=== PATIENT | female | born 1980 | race African-American/Black ===

== ENCOUNTER 2018-09-30 08:04 | Observation (INO) | payer MEDICARE, OTHER ==
[~2018-09-30] VITALS: Ht 152.4 cm; Wt 124.7 kg
--- OUTSIDE RECORDS SUMMARY | 2018-09-30 08:06 | XMS REPORT ---
Author Author Rowdy Olmos Organization eClinicalWorks Address Unknown Phone Unavailable Care Team Providers Care Magazine Designer Name Role Phone Rowdy Olmos CP Unavailable Encounters Encounter Location Date Unknown [facility] Mar 26, 2016 Unknown [facility] Apr 06, 2016 Problems Problem Type Condition ICD-9 Code Onset Dates Condition Status Problem BMI 50.0-59.9, adult Z68.43 Active Problem Morbid obesity, unspecified obesity type E66.01 Active Problem Hypothyroidism, unspecified type E03.9 Active Problem History of thyrotoxicosis Z86.39 Active Problem Hx of thyroid irradiation Z92.3 Active Medications Medication Code System Code Instructions Start Date End Date Status Dosage [facility] [address]-78 100 MCG Orally Once a day Apr 07, 2016 Active 1 tablet Social History Social History Element Qualifiers Date Reported Do you take Aspirin, or a blood thinner . No I do not take aspirin / or a blood thinner Mar 26, 2016 Tobacco Use: . Are you a: never smoker Mar 26, 2016 Use of recreational / street drugs? . Answer: No Mar 26, 2016 Marital Status: . Single Mar 26, 2016 Caffeine intake? . Status: Yes, What type: Tea, Soft Drinks Mar 26, 2016 Do you exercise? . Answer: No Mar 26, 2016 Do you drink alcohol? . Status: Yes, Type: Wine, How Often? Socially, Quantity: 1 Mar 26, 2016 Travel outside [place]: . 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
--- OUTSIDE RECORDS SUMMARY | 2018-09-30 08:06 | XMS REPORT ---
Author Author Rowdy Olmos Organization eClinicalWorks Address Unknown Phone Unavailable Care Team Providers Care Attorney General Name Role Phone Rowdy Olmos CP Unavailable Allergies No Known Allergies Problems Problem Type Condition Code Onset Dates Condition Status Problem OLIMPIA (obstructive sleep apnea) G47.33 Active Problem BMI 50.0-59.9, adult Z68.43 Active Problem Iron deficiency anemia due to chronic blood loss D50.0 Active Problem Hypothyroidism, unspecified type E03.9 Active Problem Hx of thyroid irradiation Z92.3 Active Problem Morbid obesity, unspecified obesity type E66.01 Active Problem History of thyrotoxicosis Z86.39 Active Medications Medication Code System Code Instructions Start Date End Date Status Dosage Ferrous Gluconate [facility] [address] 325 MG Orally daily June 07, 2017 Active as directed Caltrate 600+D [facility] 37925203071 600-800 MG-UNIT Orally Once a day June 07, 2017 July 07, 2017 Active 1 tablet with a meal Ergocalciferol [facility] 60001713541 59740 UNIT Orally once a week June 07, 2017 July 22, 2017 Active 1 capsule Folic Acid [facility] 14083629642 1 MG Orally Once a day June 07, 2017 July 07, 2017 Active 1 tablet Results No Known Results Summary Purpose eClinicalWorks Submission
--- OUTSIDE RECORDS SUMMARY | 2018-09-30 08:06 | XMS REPORT | Continuity of Care Document ---
Author Author [employer] Organization [employer] Address Unknown Phone Unavailable Care Team Providers Care Cupola Tender Helper Name Role Phone [employer] Unavailable Unavailable Problems Problem Status Onset Date Classification Date Reported Comments Source KNEE AND ELBOW PAIN Active 04/09/2012 [facility] Graves eye disease Resolved Problem 04/11/2012 [facility] Hypothyroidism Resolved Problem 04/11/2012 [facility] OLIMPIA Active Problem 07/08/2017 2.16.840.1.631231.4.391.11.31465 BMI 50.0-59.9, adult Active Problem 07/08/2017 2.16.840.1.560053.4.391.11.61306 Iron deficiency anemia due to chronic blood loss Active Problem 07/08/2017 2.16.840.1.480072.4.391.11.14142 Hypothyroidism, unspecified type Active Diagnosis 07/08/2017 2.16.840.1.864859.4.391.11.48476 Hx of thyroid irradiation Active Problem 07/08/2017 2.16.840.1.981171.4.391.11.88282 Morbid obesity, unspecified obesity type Active Problem 07/08/2017 2.16.840.1.612960.4.391.11.77774 History of thyrotoxicosis Active Problem 07/08/2017 2.16.840.1.104874.4.391.11.71540 Encounter for general adult medical examination with abnormal findings Active Diagnosis 06/22/2017 2.16.840.1.502055.4.391.11.03192 Folic acid deficiency Active Problem 07/08/2017 2.16.840.1.110741.4.391.11.45270 Vitamin D deficiency Active Problem 07/08/2017 2.16.840.1.967645.4.391.11.06204 Encounter for immunization Active Diagnosis 04/06/2016 2.16.840.1.590302.4.391.11.74878 Abnormal thyroid blood test Active Diagnosis 04/08/2016 2.16.840.1.253218.4.391.11.10046 Medications Medication Details Route Status Patient Instructions Ordering Provider Order Date Source Ferrous Gluconate as directed Orally Active 325 MG Orally daily Nickolas 06/07/2017 2.16.840.1.298801.4.391.11.28401 Caltrate 600+D 1 tablet with a meal Orally Active 600-800 MG- UNIT Orally Once a day Nickolas 06/07/2017 2.16.840.1.731738.4.391.11.24253 Ergocalciferol 1 capsule Orally Active 82086 UNIT Orally once a week Nickolas 06/07/2017 2.16.840.1.777171.4.391.11.37325 Folic Acid 1 tablet Orally Active 1 MG Orally Once a day Nickolas 06/07/2017 2.16.840.1.462512.4.391.11.31537 Hemocyte Plus as directed Orally Active 106-1 MG Orally Once a day Nickolas 05/26/2016 2.16.840.1.077251.4.391.11.24555 Levothyroxine Sodium 1 tablet Orally Active 150 MCG Orally Once a day Nickolas 05/26/2016 2.16.840.1.834128.4.391.11.59444 Adipex-P 1 tablet Orally Active 37.5 MG Orally Once a day Nickolas 05/26/2016 2.16.840.1.610828.4.391.11.33625 Hemocyte Plus as directed Orally Active 106-1 MG Orally Once a day Nickolas 05/26/2016 2.16.840.1.351716.4.391.11.52094 Levothyroxine Sodium 1 tablet Orally Active 150 MCG Orally Once a day Nickolas 04/07/2016 2.16.840.1.430822.4.391.11.93895 Levothyroxine Sodium 1 tablet Orally Active 100 MCG Orally Once a day Nickolas 04/07/2016 2.16.840.1.986729.4.391.11.82658 [place] 5/325 oral tablet 1-2 tab, PO, Q4-6H, PRN, 15 tab, Pain, Substitution Allowed, Maintenance PO Active [facility]ianist 04/10/2012 [facility] [place] 5/325 oral tablet 2 tab, Route: PO, Drug Form: TAB, Dosing Weight 95.455, kg, ONCE, Start date: 04/09/12 19:37:00, Stop date: 04/09/12 19:37:00 PO No Longer Active Sabianist 04/10/2012 [facility] Levothyroxine Sodium TAKE 1 TABLET BY MOUTH EVERY DAY NA Active 150 MCG Nickolas 2.16.840.1.172454.4.391.11.14107 Allergies, Adverse Reactions, Alerts Substance Category Reaction Severity Reaction type Status Date Reported Comments Source Amoxicillin Adverse Reaction hives Adverse Reaction Active 07/04/2017 2.16.840.1.074291.4.391.11.78093 amoxicillin drug allergy Allergy Active [facility] Immunizations Immunization Date Given Site Status Last Updated Comments Source FLU VACCINE NO PRESERV 3 & > 03/26/2016 completed 2.16.840.1.139596.4.391.11.36901 Results No Data Provided for This Section Pathology Reports No Data Provided for This Section Diagnostic Reports No Data Provided for This Section Consultation Notes No Data Provided for This Section Discharge Summaries No Data Provided for This Section History and Physicals No Data Provided for This Section Vital Signs Vital Sign Value Date Comments Source Weight 281.4 07/04/2017 2.16.840.1.003482.4.391.11.64702 Height 60.6 07/04/2017 2.16.840.1.064316.4.391.11.74704 Temperature Oral (F) 98.5 F 07/04/2017 2.16.840.1.336864.4.391.11.53555 Heart Rate 82 07/04/2017 2.16.840.1.060299.4.391.11.40916 Diastolic (mm Hg) 88 07/04/2017 2.16.840.1.985324.4.391.11.39270 Systolic (mm Hg) 133 07/04/2017 2.16.840.1.391647.4.391.11.51895 Weight 293.6 06/06/2017 2.16.840.1.706111.4.391.11.88627 Height 60.6 06/06/2017 2.16.840.1.224579.4.391.11.56525 Temperature Oral (F) 9892 F 06/06/2017 2.16.840.1.988748.4.391.11.06673 Heart Rate 88 06/06/2017 2.16.840.1.269909.4.391.11.76693 Diastolic (mm Hg) 94 06/06/2017 2.16.840.1.685973.4.391.11.20538 Systolic (mm Hg) 133 06/06/2017 2.16.840.1.534428.4.391.11.26150 Weight 291.1 05/26/2016 2.16.840.1.137161.4.391.11.59156 Height 60.6 05/26/2016 2.16.840.1.392230.4.391.11.64431 Temperature Oral (F) 98.0 F 05/26/2016 2.16.840.1.700743.4.391.11.78612 Heart Rate 83 05/26/2016 2.16.840.1.120409.4.391.11.02219 Diastolic (mm Hg) 95 05/26/2016 2.16.840.1.798958.4.391.11.06174 Systolic (mm Hg) 130 05/26/2016 2.16.840.1.864643.4.391.11.36244 Weight 291.7 03/26/2016 2.16.840.1.891161.4.391.11.04621 Height 60.6 03/26/2016 2.16.840.1.519394.4.391.11.86554 Temperature Oral (F) 98.1 F 03/26/2016 2.16.840.1.668191.4.391.11.58116 Heart Rate 85 03/26/2016 2.16.840.1.348813.4.391.11.86481 Diastolic (mm Hg) 96 03/26/2016 2.16.840.1.640071.4.391.11.17264 Systolic (mm Hg) 137 03/26/2016 2.16.840.1.841489.4.391.11.02893 Weight 95.455 04/10/2012 [facility] Height 149.86 cm 04/10/2012 [facility] Encounters Location Location Details Encounter Type Encounter Number Reason For Visit Attending Provider ADM Date DC Date Status Source [facility] Emergency [id number] NOE STONE 04/09/2012 04/09/2012 Discharged [facility] Unknown [id number] 03/26/2016 03/26/2016 2.16.840.1.826640.4.391.11.77237 [facility] Unknown [id number] 03/26/2016 03/26/2016 2.16.840.1.200663.4.391.11.76237 [facility] Unknown [id number] 03/26/2016 03/26/2016 2.16.840.1.287337.4.391.11.48742 [facility] Unknown [id number] 04/06/2016 04/06/2016 2.16.840.1.497026.4.391.11.32864 [facility] Unknown [id number] 04/06/2016 04/06/2016 2.16.840.1.812382.4.391.11.63577 [facility] Unknown [id number] 04/07/2016 04/07/2016 2.16.840.1.674867.4.391.11.66940 Procedures Procedure Code Date Perfomer Comments Source Tubal ligation [id number] [facility] Assessment and Plan No Data Provided for This Section Plan of Care No Data Provided for This Section Social History Social History Date Source Social History ElementQualifiersDate Reported Do you take Aspirin, or a [...] 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
--- OUTSIDE RECORDS SUMMARY | 2018-09-30 08:06 | XMS REPORT ---
Author Author Rowdy Olmos Organization eClinicalWorks Address Unknown Phone Unavailable Care Team Providers Care Headliner Installer Name Role Phone Rowdy Olmos CP Unavailable Allergies, Adverse Reactions, Alerts Substance Reaction Event Type Amoxicillin hives Drug Allergy Problems Problem Type Condition Code Onset Dates Condition Status Assessment Iron deficiency anemia due to chronic blood loss D50.0 Active Assessment Hypothyroidism, unspecified type E03.9 Active Assessment Morbid obesity, unspecified obesity type E66.01 Active Assessment OLIMPIA (obstructive sleep apnea) G47.33 Active Problem OLIMPIA (obstructive sleep apnea) G47.33 Active Problem Hypothyroidism, unspecified type E03.9 Active Problem Iron deficiency anemia due to chronic blood loss D50.0 Active Problem History of thyrotoxicosis Z86.39 Active Problem Hx of thyroid irradiation Z92.3 Active Problem BMI 50.0-59.9, adult Z68.43 Active Problem Morbid obesity, unspecified obesity type E66.01 Active Medications Medication Code System Code Instructions Start Date End Date Status Dosage Levothyroxine Sodium [facility] [address]-92 150 MCG Orally Once a day May 26, 2016 Active 1 tablet Levothyroxine Sodium [facility] [address]-20 100 MCG Orally Once a day Apr 07, 2016 Active 1 tablet Adipex-P [facility] [address]-91 37.5 MG Orally Once a day May 26, 2016 June 26, 2016 Active 1 tablet Hemocyte Plus [facility] [address]-98 106-1 MG Orally Once a day May 26, 2016 Active as directed Vital Signs Date/Time: May 26, 2016 BMI 55.73 Index Weight 291.1 lbs Height 60.6 in Temperature 98.0 F Cardiac Monitoring Heart Rate 83 /min Blood Pressure Diastolic 95 mm Hg Blood Pressure Systolic 130 mm Hg Results No Known Results Summary Purpose eClinicalWorks Submission
--- OUTSIDE RECORDS SUMMARY | 2018-09-30 08:06 | XMS REPORT | Clinical Summary ---
Author Author [facility] Organization [employer] [facility] [facility] Address Unknown Phone Unavailable Care Team Providers Care Yard Specialist Name Role Phone Rowdy Olmos MD PCP Allergies Comments Active Allergy Reactions Severity Noted Date Amoxicillin Anaphylaxis High 02/22/2017 Medications End Date Status Medication Sig Dispensed Refills Start Date Active levothyroxine (SYNTHROID, Take 150 mcg 0 LEVOXYL) 150 mcg tablet by mouth every morning. Active multivitamin,qs-ceat-Ym-F Take 1 tablet 0 A-min (UNI-THERA M) by mouth 27-0.4 mg tablet daily. Active calcium carbonate Take by 0 (CALTRATE 600 ORAL) mouth. Active ergocalciferol (VITAMIN Take 50,000 0 D2) 50,000 unit capsule Units by mouth once a week. 06/04/2018 predniSONE (DELTASONE) 20 Take 3 15 tablet 0 mg tablet tablets (60 9 mg total) by mouth daily for 5 days. 06/29/2018 albuterol (PROAIR Inhale 1-2 1 Inhaler 0 HFA,PROVENTIL puffs every 6 9 HFA,VENTOLIN HFA) 90 (six) hours mcg/actuation inhaler as needed for wheezing for up to 30 days. Active Problems Not on file Encounters Care Team Description Date Type Specialty Frederick Ortega MD Upper respiratory tract infection, unspecified type (Primary Dx); Bronchospasm 05/30/2018 Emergency Emergency Medicine after 09/29/2017 Social History Date Tobacco Use Types Packs/Day Years Used Never Smoker Smokeless Tobacco: Never Used Alcohol Use Drinks/Week oz/Week Comments Yes social Sex Assigned at Date Recorded Not on file Industry Job Start Date Occupation Not on file Not on file Not on file Travel End Travel History Travel Start No recent travel history available. Last Filed Vital Signs Time Taken Vital Sign Reading 05/30/2018 5:10 PM CDT Blood Pressure 114/72 05/30/2018 5:10 PM CDT Pulse 86 05/30/2018 5:10 PM CDT Temperature 36.9 C (98.4 F) 05/30/2018 5:10 PM CDT Respiratory Rate 20 05/30/2018 5:10 PM CDT Oxygen Saturation 99% - Inhaled Oxygen - Concentration 05/30/2018 5:19 PM CDT Weight 124 kg (274 lb) 05/30/2018 5:19 PM CDT Height 149.9 cm (4' 11") 05/30/2018 5:19 PM CDT Body Mass Index 55.34 Plan of Treatment Health Maintenance Due Date Last Done Comments INFLUENZA VACCINE 10/05/2018 Procedures Comments Procedure Name Priority Date/Time Associated Diagnosis INFLUENZA ANTIGEN Routine 05/30/2018 5:44 PM CDT STREP SCREEN CULTURE Routine 05/30/2018 5:39 PM CDT GROUP A STREP, RAPID Routine 05/30/2018 ANTIGEN 5:39 PM CDT after 09/29/2017 Results * Influenza antigen (05/30/2018 5:44 PM CDT) Influenza Negative for Influenza A/B DOHERTY antigen antigen. BAHAI Comment: DYER Specimen Information EMERGENCY CARE Specimen Source: Nares CENTER Specimen Site: Left Specimen Nares - Left Performing Organization Address [facility] [place] [address] [facility] MATEUS MCQUEEN [address] [place] [address] * Group A strep, rapid antigen (05/30/2018 5:39 PM CDT) Group A strep, Negative for Group A KENESAW rapid antigen Streptococcus antigen. BAHAI result Comment: DYER Specimen Information EMERGENCY CARE Specimen Source: Throat CENTER Specimen Site: Not otherwise specified Specimen Throat - Not otherwise specified Performing Organization Address [facility] [address] PATHOLOGY AND GENOMIC MEDICINE, [facility] MATEUS MCQUEEN [address] [place] [address] [facility] * Strep screen culture (05/30/2018 5:39 PM CDT) Strep screen No beta hemolytic Streptococci MATEUS culture isolate isolated BAHAI Comment: HOSPITAL Specimen Information Specimen Source: Throat Specimen Site: Not otherwise specified Specimen Throat - Not otherwise specified Performing Organization Address City/State/Zipcode Phone Number [facility] OF [address] [place] [address] PATHOLOGY AND GENOMIC MEDICINE MATEUS MCQUEEN [address] [place], [place] [phone] HOSPITAL after 09/29/2017 Insurance Type Payer Benefit Subscriber ID Effective Phone Address Plan / Dates Group Exchange MCCRARY EXCHANGE MCCRARY xxxxxxxxxx 2016-P [employer] resent E EXCHANGE TPL TPL TPL-MED-DA xxxxxxxxxx 2017 TA -Present VillegasPhuong mejia [employer] Self [address] [place] (Home) [place] [id number] Liability Advance Directives Patient has advance care planning documents on file. For more information, arsenio e contact: Mateus Mcqueen [address] [place] [address]
--- OUTSIDE RECORDS SUMMARY | 2018-09-30 08:06 | XMS REPORT ---
Author Author Rowdy Olmos Organization eClinicalWorks Address Unknown Phone Unavailable Care Team Providers Care Business Analyst Project Manager Name Role Phone Rowdy Olmos CP Unavailable Allergies, Adverse Reactions, Alerts Substance Reaction Event Type Amoxicillin hives Drug Allergy Problems Problem Type Condition Code Onset Dates Condition Status Assessment Hypothyroidism, unspecified type E03.9 Active Problem Hx of thyroid irradiation Z92.3 Active Problem BMI 50.0-59.9, adult Z68.43 Active Problem Folic acid deficiency E53.8 Active Problem OLIMPIA (obstructive sleep apnea) G47.33 Active Problem Vitamin D deficiency E55.9 Active Problem History of thyrotoxicosis Z86.39 Active Problem Hypothyroidism, unspecified type E03.9 Active Problem Iron deficiency anemia due to chronic blood loss D50.0 Active Problem Morbid obesity, unspecified obesity type E66.01 Active Assessment Folic acid deficiency E53.8 Active Assessment Vitamin D deficiency E55.9 Active Assessment OLIMPIA (obstructive sleep apnea) G47.33 Active Medications Medication Code System Code Instructions Start Date End Date Status Dosage Ferrous Gluconate [facility] [address] 325 MG Orally daily June 07, 2017 Active as directed Caltrate 600+D ND 07537444686 600-800 MG-UNIT Orally Once a day June 07, 2017 July 07, 2017 Active 1 tablet with a meal Folic Acid ND 48620219130 1 MG Orally Once a day June 07, 2017 July 07, 2017 Active 1 tablet Hemocyte Plus [facility] 66070165406 106-1 MG Orally Once a day May 26, 2016 Active as directed Ergocalciferol ND 23790719099 44683 UNIT Orally once a week June 07, 2017 July 22, 2017 Active 1 capsule Levothyroxine Sodium ND 70944649904 150 MCG Orally Once a day Apr 07, 2016 Active 1 tablet Vital Signs Date/Time: July 04, 2017 BMI 53.87 Index Weight 281.4 lbs Height 60.6 in Temperature 98.5 F Cardiac Monitoring Heart Rate 82 /min Blood Pressure Diastolic 88 mm Hg Blood Pressure Systolic 133 mm Hg Results No Known Results Summary Purpose eClinicalWorks Submission
--- OUTSIDE RECORDS SUMMARY | 2018-09-30 08:06 | XMS REPORT ---
Author Author Rowdy Olmos Organization eClinicalWorks Address Unknown Phone Unavailable Care Team Providers Care Oracle R12 Developer Name Role Phone Rowdy Olmos CP Unavailable Encounters Encounter Location Date Unknown [facility] Mar 26, 2016 Unknown [facility] Apr 06, 2016 Unknown [facility] Apr 07, 2016 Problems Problem Type Condition ICD-9 Code Onset Dates Condition Status Problem BMI 50.0-59.9, adult Z68.43 Active Problem Morbid obesity, unspecified obesity type E66.01 Active Problem Hypothyroidism, unspecified type E03.9 Active Assessment Abnormal thyroid blood test R94.6 Active Problem History of thyrotoxicosis Z86.39 Active Problem Hx of thyroid irradiation Z92.3 Active Social History Social History Element Qualifiers Date [...]
--- OUTSIDE RECORDS SUMMARY | 2018-09-30 08:06 | XMS REPORT ---
Author Author Rowdy Olmos Organization [employer]ClinicalWorks Address Unknown Phone Unavailable Care Team Providers Care Manager Agriculture Name Role Phone Rowdy Olmos CP Unavailable Allergies, Adverse Reactions, Alerts Substance Reaction Event Type Amoxicillin hives Drug Allergy Encounters Encounter Location Date Unknown [facility] Mar 26, 2016 Problems Problem Type Condition ICD-9 Code Onset Dates Condition Status Assessment History of thyrotoxicosis Z86.39 Active Assessment BMI 50.0-59.9, adult Z68.43 Active Assessment Morbid obesity, unspecified obesity type E66.01 Active Assessment Encounter for immunization Z23 Active Assessment Hx of thyroid irradiation Z92.3 Active Problem BMI 50.0-59.9, adult Z68.43 Active Problem Morbid obesity, unspecified obesity type E66.01 Active Problem Hypothyroidism, unspecified type E03.9 Active Assessment Encounter for general adult medical examination with abnormal findings Z00.01 Active Assessment Hypothyroidism, unspecified type E03.9 Active Problem History [...] 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
--- OUTSIDE RECORDS SUMMARY | 2018-09-30 08:06 | XMS REPORT ---
Author Author Rowdy Olmos Organization e[employer] Address Unknown Phone Unavailable Care Team Providers Care Web Design Intern Name Role Phone Rowdy Olmos CP Unavailable Allergies No Known Allergies Problems Problem Type Condition Code Onset Dates Condition Status Problem Hx of thyroid irradiation Z92.3 Active [...] obesity, unspecified obesity type E66.01 Active Medications No Known Medications Results No Known Results Summary Purpose eClinicalWorks Submission
--- OUTSIDE RECORDS SUMMARY | 2018-09-30 08:06 | XMS REPORT ---
Author Author Rowdy Olmos Organization [employer] Address Unknown Phone Unavailable Care Team Providers Care Leadite Heater Name Role Phone Rowdy Olmos CP Unavailable Allergies, Adverse Reactions, Alerts Substance Reaction Event Type Amoxicillin hives Drug Allergy Problems Problem Type Condition Code Onset Dates Condition Status Assessment BMI 50.0-59.9, adult Z68.43 Active Assessment Encounter for general adult medical examination with abnormal findings Z00.01 Active Assessment Hypothyroidism, unspecified type E03.9 Active Problem OLIMPIA (obstructive sleep apnea) G47.33 Active Problem BMI 50.0-59.9, adult Z68.43 Active Problem Iron deficiency anemia due to chronic blood loss D50.0 Active Problem Hypothyroidism, unspecified type E03.9 Active Problem Hx of thyroid irradiation Z92.3 Active Problem Morbid obesity, unspecified obesity type E66.01 Active Problem History of thyrotoxicosis Z86.39 Active Assessment Iron deficiency anemia due to chronic blood loss D50.0 Active Assessment Hx of thyroid irradiation Z92.3 Active Assessment History of thyrotoxicosis Z86.39 Active Assessment OLIMPIA (obstructive sleep apnea) G47.33 Active Assessment Morbid obesity, unspecified obesity type E66.01 Active Medications Medication Code System Code Instructions Start Date End Date Status Dosage Levothyroxine Sodium ND 02018501938 150 MCG Active TAKE 1 TABLET BY MOUTH EVERY DAY Levothyroxine Sodium NDC 40214579176 150 MCG Orally Once a day Apr 07, 2016 Active 1 tablet Hemocyte Plus ND 08976430485 106-1 MG Orally Once a day May 26, 2016 Active as directed Vital Signs Date/Time: June 06, 2017 BMI 56.20 Index Weight 293.6 lbs Height 60.6 in Temperature 9892 F Cardiac Monitoring Heart Rate 88 /min Blood Pressure Diastolic 94 mm Hg Blood Pressure Systolic 133 mm Hg Results Name Result Date Reference Range Unit Abnormality Flag COMPREHENSIVE METABOLIC PANEL ----CALCIUM 9.2 20170606 8.6-10.2 mg/dL N ----CARBON DIOXIDE 24 20170606 20-31 mmol/L N ----ALT 11 20170606 6-29 U/L N ----CREATININE 0.98 68020674 0.50-1.10 mg/dL N ----AST 16 20170606 10-30 U/L N ----eGFR NON-AFR. GREEK 74 82996387 > OR=60 mL/min/1.73m2 N ----ALKALINE PHOSPHATASE 58 78604080 33-115 U/L N ----eGFR 86 65601816 > OR=60 mL/min/1.73m2 N ----BILIRUBIN, TOTAL 0.7 44191504 0.2-1.2 mg/dL N ----BUN/CREATININE RATIO NOT APPLICABLE 20170606 6-22 (calc) ----ALBUMIN/GLOBULIN RATIO 1.3 70193042 1.0-2.5 (calc) N ----SODIUM 137 02066598 135-146 mmol/L N ----GLOBULIN 3.4 58343837 1.9-3.7 g/dL (calc) N ----POTASSIUM 4.0 03976415 3.5-5.3 mmol/L N ----GLUCOSE 80 46781164 65-99 mg/dL N ----CHLORIDE 101 00936392 98-110 mmol/L N ----ALBUMIN 4.3 11277438 3.6-5.1 g/dL N ----UREA NITROGEN (BUN) 17 37322247 7-25 mg/dL N ----PROTEIN, TOTAL 7.7 06422488 6.1-8.1 g/dL N CBC (INCLUDES DIFF/PLT) ----ABSOLUTE EOSINOPHILS 92 46771391 15-500 cells/uL N ----MCV 84.9 12871462 80.0-100.0 fL N ----HEMATOCRIT 31.4 93674963 35.0-45.0 % L ----ABSOLUTE MONOCYTES 403 45036379 200-950 cells/uL N ----MCHC 31.5 04822474 32.0-36.0 g/dL L ----ABSOLUTE LYMPHOCYTES 2356 66287188 850-3900 cells/uL N ----MCH 26.8 10024959 27.0-33.0 pg L ----ABSOLUTE NEUTROPHILS 3689 12607045 2443-6154 cells/uL N ----MONOCYTES 6.1 59847266 % N ----WHITE BLOOD CELL COUNT 6.6 14814360 3.8-10.8 Thousand/uL N ----LYMPHOCYTES 35.7 02550173 % N ----NEUTROPHILS 55.9 25173347 % N ----HEMOGLOBIN 9.9 00906547 11.7-15.5 g/dL L ----ABSOLUTE BASOPHILS 59 74268639 0-200 cells/uL N ----RED BLOOD CELL COUNT 3.70 38042336 3.80-5.10 Million/uL L ----BASOPHILS 0.9 08508056 % N ----MPV 11.6 49894869 7.5-12.5 fL N ----EOSINOPHILS 1.4 83119550 % N ----RDW 14.4 98034822 11.0-15.0 % N ----PLATELET COUNT 313 91968189 140-400 Thousand/uL N LIPID PANEL ----NON HDL CHOLESTEROL 228 05433677 <130 mg/dL (calc) H ----CHOL/HDLC RATIO 5.0 20806890 <5.0 (calc) H ----CHOLESTEROL, TOTAL 285 61214345 <200 mg/dL H ----HDL CHOLESTEROL 57 90257995 >50 mg/dL N ----TRIGLYCERIDES 112 84332628 <150 mg/dL N ----LDL-CHOLESTEROL 203 82152871 mg/dL (calc) H VITAMIN B12/FOLATE, SERUM PANEL ----FOLATE, SERUM 5.0 72378592 ng/mL L ----VITAMIN B12 890 22107862 200-1100 pg/mL N VITAMIN D, 25-HYDROXY, LC/MS/MS ----VITAMIN D,25-OH,TOTAL,IA 8 36025606 30-100 ng/mL L HEMOGLOBIN A1c ----HEMOGLOBIN A1c 5.1 97094670 <5.7 % of total Hgb N TSH ----TSH 135.61 87619317 mIU/L H Summary Purpose [employer] Submission
--- OUTSIDE RECORDS SUMMARY | 2018-09-30 08:06 | XMS REPORT | CCD ---
Author Author Auto Generated Organization [facility] Address Unknown Phone Unavailable Care Team Providers Care Forestry Pilot Name Role Phone Lorelei Taberkley Lima CP Allergies, Adverse Reactions, Alerts Substance Reaction Status amoxicillin Active Problem List Condition Effective Dates Status Graves eye disease Resolved Hypothyroidism Resolved Medications Medication Instructions Start Date End Date Status Ider 5/325 oral 2 tab, Route: PO, Drug Form: TAB, 04/09/2012 04/09/2012 Completed tablet Dosing Weight 95.455, kg, ONCE, Start date: 04/09/12 19:37:00, Stop date: 04/09/12 19:37:00 Ider 5/325 oral 1-2 tab, PO, Q4-6H, PRN, 15 tab, 04/09/2012 04/14/2012 Ordered tablet Pain, Substitution Allowed, Maintenance Vital Signs Most recent to oldest [Reference Range]: 1 Height 149.86 cm (04/09/2012 19:01:00) Weight 95.455 kg (04/09/2012 19:01:00) Procedures Procedures Date Related Diagnosis Tubal ligation
[2018-09-30] MEDS ORDERED: ALBUTEROL/IPRATROPIUM 3 ML NEB NEB ONE (08:30)
--- NOTE | 2018-09-30 09:19 | Diagnostic Imaging Report ---
EXAMINATION: CXR 2 VIEW - [facility] INDICATION: Cough, wheezing. COMPARISON: None FINDINGS: TUBES and LINES: None. LUNGS: Low lung volumes. There are mild patchy opacities in the lower lungs. No evidence of pulmonary edema. PLEURA: No pleural effusion or pneumothorax. HEART AND MEDIASTINUM: The cardiomediastinal silhouette is mildly enlarged. BONES AND SOFT TISSUES: No acute osseous abnormality. UPPER ABDOMEN: No free air under the diaphragm. IMPRESSION: Mild patchy bibasilar opacities could represent pneumonia in the appropriate clinical setting. Suggest follow-up chest radiograph in 6-8 weeks to assess for resolution. Mild enlargement of the cardiomediastinal silhouette, which may be accentuated by low lung volumes and technique. Signed by: Dr. Rudy Engel MD on 09/30/2018 9:16 AM
[2018-09-30] MEDS ORDERED: ALBUTEROL/IPRATROPIUM 3 ML NEB ONE (09:25)
[2018-09-30] MEDS ORDERED: SODIUM CHLORIDE FLUSH 10 ML SYR INJ PRN (09:45)
[2018-09-30] MEDS ORDERED: PANTOPRAZOLE INJ 40 MG in SODIUM CHLORIDE 0.9% 50ML 50 ML IV SCH ×2 (09:45→12:00)
[2018-09-30] MEDS ORDERED: LEVOFLOXACIN 750MG/D5W 150ML 150 ML IV STA (09:46)
--- NOTE | 2018-09-30 09:53 | NUR ---
called [facility] for transport
[2018-09-30] MEDS ORDERED: LEVOFLOXACIN 750MG/D5W 150ML 150 ML IV ONE (10:01)
--- OUTSIDE RECORDS SUMMARY | 2018-09-30 10:13 | XMS REPORT | Clinical Summary ---
Author Author [employer] [facility] Organization [employer] Address Unknown Phone Unavailable Care Team Providers Care Deaf/Hard Of Hearing Specialist Name Role Phone Rowdy Olmos MD PCP Allergies Comments Active Allergy Reactions Severity Noted Date Amoxicillin Anaphylaxis High 02/22/2017 Medications End Date Status Medication Sig Dispensed Refills Start Date Active levothyroxine (SYNTHROID, Take 150 mcg 0 LEVOXYL) 150 mcg tablet by mouth every morning. Active multivitamin,uk-xzco-Cl-F Take 1 tablet 0 A-min (UNI-THERA M) [...] Influenza A/B DOHERTY antigen antigen. BAHAI Comment: MESA Specimen Information EMERGENCY CARE Specimen Source: Nares CENTER Specimen Site: Left Specimen Nares - Left Performing Organization Address [facility] [address] [facility] MATEUS MCQUEEN [address] [place] [address] * Group A strep, rapid antigen (05/30/2018 5:39 PM CDT) Group A strep, Negative for Group A [place] rapid antigen Streptococcus antigen. BAHAI result Comment: MESA Specimen Information EMERGENCY CARE Specimen Source: Throat CENTER Specimen Site: Not otherwise specified Specimen Throat - Not otherwise specified Performing Organization Address [facility] [address] PATHOLOGY AND GENOMIC MEDICINE, [facility] [place] MATEUS MCQUEEN [address] [place] [address] [facility] [place] * Strep screen culture (05/30/2018 5:39 PM CDT) Strep screen No beta hemolytic Streptococci MATEUS culture isolate isolated BAHAI Comment: HOSPITAL Specimen Information Specimen Source: Throat Specimen Site: Not otherwise specified Specimen Throat - Not otherwise specified Performing Organization Address City/State/Zipcode Phone Number [facility] DEPARTMENT OF [address] [place] [address] PATHOLOGY AND GENOMIC MEDICINE MATEUS MCQUEEN [address] [place], [place] [id number] HOSPITAL after 09/29/2017 Insurance Type Payer Benefit Subscriber ID Effective Phone Address Plan / Dates Group Exchange MCCRARY EXCHANGE MCCRARY xxxxxxxxxx 2016-P [employer]ETPL[employer] resent E EXCHANGE TPL TPL TPL-MED-DA xxxxxxxxxx 2017 TA -Present VillegasPhuong mejia Third Self 1980 [address] [place] (Home) [place] [id number] Liability Advance Directives Patient has advance care planning documents on file. For more information, arsenio e contact: Mateus Mcqueen [address] [place] [address]
--- OUTSIDE RECORDS SUMMARY | 2018-09-30 10:13 | XMS REPORT | Continuity of Care Document ---
Author Author [employer] Organization [employer] Address Unknown Phone Unavailable Care Team Providers Care Solo Musician Name Role Phone [employer] Unavailable Unavailable Problems Problem Status Onset Date Classification Date Reported Comments Source KNEE AND ELBOW PAIN Active 04/09/2012 [facility] Graves eye disease Resolved Problem 04/11/2012 [facility] Hypothyroidism Resolved Problem 04/11/2012 [facility] OLIMPIA Active Problem 07/08/2017 2.16.840.1.967594.4.391.11.94511 BMI 50.0-59.9, adult Active Problem 07/08/2017 2.16.840.1.998762.4.391.11.20273 Iron deficiency anemia due to chronic blood loss Active Problem 07/08/2017 2.16.840.1.886513.4.391.11.07790 Hypothyroidism, unspecified type Active Diagnosis 07/08/2017 2.16.840.1.672932.4.391.11.44314 Hx of thyroid irradiation Active Problem 07/08/2017 2.16.840.1.545167.4.391.11.55178 Morbid obesity, unspecified obesity type Active Problem 07/08/2017 2.16.840.1.293140.4.391.11.00759 History of thyrotoxicosis Active Problem 07/08/2017 2.16.840.1.393354.4.391.11.53100 Encounter for general adult medical examination with abnormal findings Active Diagnosis 06/22/2017 2.16.840.1.717145.4.391.11.16374 Folic acid deficiency Active Problem 07/08/2017 2.16.840.1.220682.4.391.11.63921 Vitamin D deficiency Active Problem 07/08/2017 2.16.840.1.467940.4.391.11.73284 Encounter for immunization Active Diagnosis 04/06/2016 2.16.840.1.204070.4.391.11.90949 Abnormal thyroid blood test Active Diagnosis 04/08/2016 2.16.840.1.875464.4.391.11.43497 Medications Medication Details Route Status Patient Instructions Ordering Provider Order Date Source Ferrous Gluconate as directed Orally Active 325 MG Orally daily Nickolas 06/07/2017 2.16.840.1.343785.4.391.11.97261 Caltrate 600+D 1 tablet with a meal Orally Active 600-800 MG- UNIT Orally Once a day Nickolas 06/07/2017 2.16.840.1.365493.4.391.11.49723 Ergocalciferol 1 capsule Orally Active 88374 UNIT Orally once a week Nickolas 06/07/2017 2.16.840.1.262900.4.391.11.42625 Folic Acid 1 tablet Orally Active 1 MG Orally Once a day Nickolas 06/07/2017 2.16.840.1.459407.4.391.11.85508 Hemocyte Plus as directed Orally Active 106-1 MG Orally Once a day Nickolas 05/26/2016 2.16.840.1.636796.4.391.11.45680 Levothyroxine Sodium 1 tablet Orally Active 150 MCG Orally Once a day Nickolas 05/26/2016 2.16.840.1.354431.4.391.11.00655 Adipex-P 1 tablet Orally Active 37.5 MG Orally Once a day Nickolas 05/26/2016 2.16.840.1.812913.4.391.11.10507 Hemocyte Plus as directed Orally Active 106-1 MG Orally Once a day Nickolas 05/26/2016 2.16.840.1.591628.4.391.11.30653 Levothyroxine Sodium 1 tablet Orally Active 150 MCG Orally Once a day Nickolas 04/07/2016 2.16.840.1.148112.4.391.11.37623 Levothyroxine Sodium 1 tablet Orally Active 100 MCG Orally Once a day [place] 04/07/2016 2.16.840.1.810005.4.391.11.80237 [place] 5/325 oral tablet 1-2 tab, PO, Q4-6H, PRN, 15 tab, Pain, Substitution Allowed, Maintenance PO Active Amish 04/10/2012 [facility] [place] 5/325 oral tablet 2 tab, Route: PO, Drug Form: TAB, Dosing Weight 95.455, kg, ONCE, Start date: 04/09/12 19:37:00, Stop date: 04/09/12 19:37:00 PO No Longer Active Amish 04/10/2012 [facility] Levothyroxine Sodium TAKE 1 TABLET BY MOUTH EVERY DAY NA Active 150 MCG Nickolas 2.16.840.1.672226.4.391.11.74159 Allergies, Adverse Reactions, Alerts Substance Category Reaction Severity Reaction type Status Date Reported Comments Source Amoxicillin Adverse Reaction hives Adverse Reaction Active 07/04/2017 2.16.840.1.350480.4.391.11.16757 amoxicillin drug allergy Allergy Active [facility] Immunizations Immunization Date Given Site Status Last Updated Comments Source FLU VACCINE NO PRESERV 3 & > 03/26/2016 completed 2.16.840.1.038152.4.391.11.60850 Results No Data Provided for This Section Pathology Reports No Data Provided for This Section Diagnostic Reports No Data Provided for This Section Consultation Notes No Data Provided for This Section Discharge Summaries No Data Provided for This Section History and Physicals No Data Provided for This Section Vital Signs Vital Sign Value Date Comments Source Weight 281.4 07/04/2017 2.16.840.1.659082.4.391.11.78143 Height 60.6 07/04/2017 2.16.840.1.391429.4.391.11.91650 Temperature Oral (F) 98.5 F 07/04/2017 2.16.840.1.803603.4.391.11.53408 Heart Rate 82 07/04/2017 2.16.840.1.008569.4.391.11.86157 Diastolic (mm Hg) 88 07/04/2017 2.16.840.1.753404.4.391.11.61595 Systolic (mm Hg) 133 07/04/2017 2.16.840.1.635902.4.391.11.12842 Weight 293.6 06/06/2017 2.16.840.1.529918.4.391.11.87318 Height 60.6 06/06/2017 2.16.840.1.670178.4.391.11.26256 Temperature Oral (F) 9892 F 06/06/2017 2.16.840.1.195827.4.391.11.17742 Heart Rate 88 06/06/2017 2.16.840.1.227244.4.391.11.44519 Diastolic (mm Hg) 94 06/06/2017 2.16.840.1.077053.4.391.11.64738 Systolic (mm Hg) 133 06/06/2017 2.16.840.1.537142.4.391.11.40828 Weight 291.1 05/26/2016 2.16.840.1.766255.4.391.11.03937 Height 60.6 05/26/2016 2.16.840.1.644445.4.391.11.91428 Temperature Oral (F) 98.0 F 05/26/2016 2.16.840.1.935117.4.391.11.76686 Heart Rate 83 05/26/2016 2.16.840.1.927524.4.391.11.35143 Diastolic (mm Hg) 95 05/26/2016 2.16.840.1.847490.4.391.11.68781 Systolic (mm Hg) 130 05/26/2016 2.16.840.1.097311.4.391.11.83151 Weight 291.7 03/26/2016 2.16.840.1.034159.4.391.11.89559 Height 60.6 03/26/2016 2.16.840.1.953792.4.391.11.59181 Temperature Oral (F) 98.1 F 03/26/2016 2.16.840.1.895740.4.391.11.00668 Heart Rate 85 03/26/2016 2.16.840.1.986752.4.391.11.32561 Diastolic (mm Hg) 96 03/26/2016 2.16.840.1.846569.4.391.11.22956 Systolic (mm Hg) 137 03/26/2016 2.16.840.1.887138.4.391.11.88651 Weight 95.455 04/10/2012 [facility] Height 149.86 cm 04/10/2012 [facility] Encounters Location Location Details Encounter Type Encounter Number Reason For Visit Attending Provider ADM Date DC Date Status Source [facility] Emergency [id number] NOE STONE 04/09/2012 04/09/2012 Discharged [facility] Unknown [id number] 03/26/2016 03/26/2016 2.16.840.1.845022.4.391.11.88809 [facility] Unknown [id number] 03/26/2016 03/26/2016 2.16.840.1.068966.4.391.11.57717 [facility] Unknown [id number] 03/26/2016 03/26/2016 2.16.840.1.517772.4.391.11.00682 [facility] Unknown [id number] 04/06/2016 04/06/2016 2.16.840.1.638255.4.391.11.12236 [facility] Unknown [id number] 04/06/2016 04/06/2016 2.16.840.1.936371.4.391.11.76041 [facility] Unknown [id number] 04/07/2016 04/07/2016 2.16.840.1.715136.4.391.11.37149 Procedures Procedure Code Date Perfomer Comments Source Tubal ligation [id number] [facility] Assessment and Plan No Data Provided for [...] Occupation: . HAIRSTYLIST Mar 26, 2016 03/26/2016 2.16.840.1.024256.4.391.11.92456 Family History No Data Provided for This Section Advance Directives No Data Provided for This Section Functional Status No Data Provided for This Section
--- OUTSIDE RECORDS SUMMARY | 2018-09-30 10:13 | XMS REPORT ---
Author Author [facility] Address Unknown Phone Unavailable Care Team Providers Care Real Estate Agency Licensee Name Role Phone TOMMY PEREZ Unavailable Unavailable Problems This patient has no known problems. Allergies, Adverse Reactions, Alerts This patient has no known allergies or adverse reactions. Medications This patient has no known medications. Results Test Description Test Time Test Comments Text Results Atomic Results Result Comments [facility] 2018-09-30 09:14:00 [place] [id number] Patient Name: ABHISHEK RALPH MR #: [id number] : 1980 Age/Sex: 37/F Req #: [id number] Adm Physician: Ordered by: TOMMY PEREZ MD Report #: [id number] Location: [facility] Room/Bed: Procedure: [id number] HOPD/CXR 2 VIEW - [facility] Exam Date: 09/30/18 Exam Time: 0900 REPORT STATUS: Signed EXAMINATION: [facility] INDICATION: C ough, wheezing. COMPARISON: None FINDINGS: TUBES and LINES: None. LUNGS: Low lung volumes. There are mild patchy opacities in the lower lungs. No evidence of pulmonary edema. PLEURA: No pleural effusion or pneumothorax. HEART AND MEDIASTINUM: The cardiomediastinal silhouette is mildly enlarged. BONES AND SOFT TISSUES: No acute osseous abnormality. UPPER ABDOMEN: No free air under the diaphragm. IMPRESSION: Mild patchy bibasilar opacities could represent pneumonia in the appropriate clinical setting. Suggest follow-up chest radiograph in 6-8 weeks to assess for resolution. Mild enlargement of the cardiomediastinal silhouette, which may be accentuated by low lung volumes and technique. Signed by: Dr. Familia Andrews MD on 09/30/2018 9:16 AM Dictated By: FAMILIA ANDREWS MD 5 Transcribed By: BHARAT on 09/30/18915 COPY TO: TOMMY PEREZ MD
--- NOTE | 2018-09-30 10:53 | NUR ---
CALLED FOR ETA [facility]
--- NOTE | 2018-09-30 11:24 | NUR ---
REPORT TO EMS
[2018-09-30 11:45] VITALS: BP 142/87
[2018-09-30 12:00] VITALS: BP 142/87
--- NOTE | 2018-09-30 12:00 | NUR ---
SPOKE TO KRYSTIN SALAZAR IN REGARDS TO PROTONIX ORDER, PER [employer] SALES REPRESENTATIVE IT SHOULD BE CONTINUOS.
--- NOTE | 2018-09-30 12:00 | NUR ---
PATIENT ARRIVED TO ROOM 289 VIA STRETCHER FROM [facility]. PATIENT IS IN STABLE CONDITION. FAMILY AT BEDSIDE. PATIENT ORIENTED TO ROOM AND POLICIES, ADMISSION HISTORY AND PHYSICAL ASSESSMENT COMPLETED AND DOCUMENTED. CALL LIGHT WITHIN REACH. BED IN THE LOWEST POSITION.
[2018-09-30] MEDS: PANTOPRAZOL 40MG/SOD CHL 0.9% 50 ML IV SCH ×3 (12:40→22:09)
[2018-09-30 15:50] VITALS: BP 146/86
[2018-09-30 16:43] VITALS: BP 146/86
[2018-09-30] MEDS ORDERED: GUAIFENESIN 600 MG TAB PO PRN (18:00)
[2018-09-30 19:16] LABS: CREATINE KINASE 64 IU/L (29-168)
[2018-09-30] MEDS: ALBUTEROL/IPRATROPIUM 3 ML NEB NEB SCH ×2 (19:18→23:20)
[2018-09-30] MEDS ORDERED: GUAIFENESIN 600 MG TAB PO SCH (19:28)
[2018-09-30] MEDS: GUAIFENESIN 600 MG TAB PO SCH (19:33)
--- NOTE | 2018-09-30 19:35 | NUR ---
REPORT GIVEN TO ONCOMING NURSE, WALKING ROUNDS DONE. PATIENT IS IN STABLE CONDITION. NO ACUTE DISTRESS NOTED. CALL LIGHT WITHIN REACH. BED IN THE LOWEST POSITION.
[2018-09-30 19:39] LABS: FERRITIN 3.72 ng/mL (4.63-204.00); FREE THYROXINE INDEX 0.489 (1.4-3.8)
--- NOTE | 2018-09-30 19:42 | NUR ---
ROUNDS MADE, PATIENT RECEIVING BREATHING TREATMENT. SHE DENIES SHORTNESS OF BREATH BUT C/O MILD PAIN TO THE CHEST DUE TO COUGHING. NO PAIN MEDICATION ON ORDER FOR THIS PATIENT, CALL AND SPOKE WITH DR. HODG[facility] REGARDING PAIN MANAGEMENT, NEW ORDER RECEIVED. WILL ADMINISTER THE TYLENOL ONCE THE ORDER HAS BEEN VERIFIED BY THE PHARMACIST.
[2018-09-30 19:52] VITALS: BP 139/82
[2018-09-30 20:00] VITALS: BP 139/82
[2018-09-30] MEDS: ACETAMINOPHEN 325 MG TAB PO PRN (20:05)
[2018-09-30 20:51] LABS: THYROID STIMULATING HORMONE 109.531 uIU/mL (0.350-4.940)
--- NOTE | 2018-09-30 23:20 | NUR ---
PATIENT CONDITION STABLE WITHOUT ACUTE DISTRESS, SHE C/O MILD PAIN TO THE CHEST AREA, PAIN MEDICATION NOT DUE YET. CALL LIGHT WITHIN EASY REACH, FAMILY MEMBERS VISITING WITH HER.
[2018-10-01] VITALS (8 sets, daily range): BP systolic 116–146; BP diastolic 56–92
[2018-10-01] MEDS: GUAIFENESIN 600 MG TAB PO SCH ×4 (00:52→17:13)
[2018-10-01] MEDS: ACETAMINOPHEN 325 MG TAB PO PRN (01:23)
--- NOTE | 2018-10-01 01:24 | NUR ---
PATIENT C/O HEADACHE, MEDICATED WITH TYLENOL ORDERED. CALL LIGHT WITHIN EASY REACH, PATIENT INSTRUCTED TO CALL FOR ASSISTANCE NEEDED.
[2018-10-01] MEDS: ALBUTEROL/IPRATROPIUM 3 ML NEB NEB SCH ×6 (03:05→23:00)
[2018-10-01] MEDS: PANTOPRAZOL 40MG/SOD CHL 0.9% 50 ML IV SCH (04:04)
[2018-10-01 06:45] LABS: CREATINE KINASE 61 IU/L (29-168)
--- NOTE | 2018-10-01 06:50 | NUR ---
RECEIVED PATIENT RESTING IN BED. RESPIRATIONS EVEN AND UNLABORED, NO ACUTE DISTRESS NOTED. CALL LIGHT WITHIN REACH. BED IN THE LOWEST POSITION.
[2018-10-01 08:09] LABS: BASOPHILS # (AUTO) 0.1 (0.0-0.1); EOSINOPHILS # (AUTO) 0.2 (0.0-0.4); EOSINOPHILS % 2.4 % (0.0-6.0); HEMATOCRIT 28.7 % (34.2-44.1); HEMOGLOBIN 8.1 g/dL (12.0-16.0); LYMPHOCYTES # (AUTO) 2.1 (1.0-3.2); LYMPHOCYTES % 28.8 % (18.0-39.1); MEAN CORPUSCULAR HEMOGLOBIN 23.7 pg (28-32); MEAN CORPUSCULAR HGB CONC 28.2 g/dL (31-35); MEAN CORPUSCULAR VOLUME 83.9 fL (81-99); MONOCYTES # (AUTO) 0.4 (0.2-0.8); MONOCYTES % 5.7 % (4.4-11.3); NEUTROPHILS # (AUTO) 4.5 (2.1-6.9); NEUTROPHILS % 61.8 % (38.7-80.0); PLATELET COUNT 288 x10e3/uL (140-360); RED BLOOD COUNT 3.42 x10e6/uL (3.6-5.1); RED CELL DISTRIBUTION WIDTH 17.8 % (11.7-14.4)
[2018-10-01] MEDS ORDERED: LEVOTHYROXINE SODIUM 50 MCG TAB PO SCH (08:15)
[2018-10-01 08:25] LABS: ANION GAP 15.8 mmol/L (8-16); BLOOD UREA NITROGEN 15 mg/dL (7-26); BUN/CREATININE RATIO 16 (6-25); CALCIUM 9.3 mg/dL (8.4-10.2); CARBON DIOXIDE 20 mmol/L (22-29); CHLORIDE 105 mmol/L (98-107); CREATININE, SERUM 0.91 mg/dL (0.57-1.11); EST GLOMERULAR FILTRATION RATE > 60 ML/MIN (60-); GLUCOSE 97 mg/dL (74-118); POTASSIUM 3.8 mmol/L (3.5-5.1); SODIUM 137 mmol/L (136-145)
[2018-10-01] MEDS ORDERED: HYDRALAZINE HCL 20 MG/ML VIAL IV PRN (08:30)
[2018-10-01] MEDS: METOCLOPRAMIDE HCL 10 MG/2ML VIAL IV SCH ×4 (08:30→20:25)
[2018-10-01] MEDS: LEVOTHYROXINE SODIUM 25 MCG TABLET PO SCH (08:30)
[2018-10-01] MEDS ORDERED: ONDANSETRON HCL INJ 2MG/ML 2ML 2 MG/ML VIAL IV PRN (08:30)
[2018-10-01] MEDS ORDERED: SODIUM CHLORIDE 0.9% 250ML 250 ML ONE (08:34)
[2018-10-01 08:37] LABS: HYPOCHROMASIA SLIGHT; PLATELET ESTIMATE ADEQUATE; PLATELET MORPHOLOGY COMMENT NORMAL; RBC MORPHOLOGY COMMENT NORMAL
[2018-10-01 08:39] LABS: CHOL/HDL RATIO 4.7 (3.0-3.6); MAGNESIUM 2.6 MG/DL (1.3-2.1)
[2018-10-01] MEDS: FOLIC ACID 1 MG TAB PO SCH (09:25)
[2018-10-01] MEDS: ASCORBIC ACID 500 MG TAB PO SCH ×2 (09:25→17:13)
[2018-10-01] MEDS ORDERED: LEVOFLOXACIN 750MG/D5W 150ML 150 ML IV SCH (10:00)
[2018-10-01 14:26] LABS: CREATINE KINASE 76 IU/L (29-168)
[2018-10-01] MEDS: FERROUS SULFATE 325 MG TAB PO SCH (17:13)
[2018-10-01] MEDS ORDERED: CHLORASEPTIC SPRAY 177 ML BTL MM PRN (18:00)
--- NOTE | 2018-10-01 18:26 | Consultation ---
DATE OF CONSULTATION: Pulmonary Critical Care Consultation. CHIEF COMPLAINT: Shortness of breath and cough. HISTORY OF PRESENT ILLNESS: The patient is a 37-year-old woman. She had a history of asthma as a child. She has only used inhalers readily as an adult. She came in complaining of cough and some phlegm production. She noted some wheezing. She also complains of sore throat. She denies any fevers. She receives some IV antibiotics and nebulizers and feels much better. PAST MEDICAL HISTORY: 1. Hypothyroidism. 2. Pseudotumor cerebri. 3. History of asthma as a child. PAST SURGICAL HISTORY: Tubal ligation. FAMILY HISTORY: History of cancer and diabetes. SOCIAL HISTORY: The patient does not smoke. She occasionally drinks. ALLERGIES: SHE IS ALLERGIC TO OXACILLIN. REVIEW OF SYSTEMS: There is no headache. She has no fevers. She does have sore throat. She does have some coughing and wheezing. She is not complaining of chest pain. There is no nausea or vomiting. She denies any heartburn or indigestion. She has no leg edema. PHYSICAL EXAMINATION: VITAL SIGNS: The patient is afebrile. The vital signs are stable. HEENT: Shows no facial swelling or erythema. CARDIAC: Reveals a regular rate and rhythm with normal S1 and S2. There are no murmurs or rubs heard. LUNGS: Auscultation of lungs reveals wheezing and prolonged expiratory phase bilaterally. ABDOMEN: Soft, nontender. There is no rebound or guarding. EXTREMITIES: Show no leg edema. NEUROLOGICAL: Shows no focal abnormalities. LABORATORY DATA: Hemoglobin is 8.1 with an MCV of 84. BUN to creatinine ratio is normal. Other electrolytes within normal limits. RADIOGRAPHIC DATA: Chest x-ray shows patchy bibasilar opacities. IMPRESSION: 1. Asthma with acute exacerbation. 2. Anemia secondary to chronic blood loss. 3. Hypothyroidism. 4. Severe obesity. PLAN: 1. Switch to p.o. antibiotics. 2. Rescue inhaler as needed. 3. Probable discharge tomorrow. 4. Review echocardiogram prior to discharge. MD YENNY Reeves/KIRTI /[id number]
--- NOTE | 2018-10-01 18:41 | NUR ---
REPORT GIVEN TO ONCOMING NURSE, WALKING ROUNDS DONE. PATIENT IS RESTING IN BED. NO ACUTE DISTRESS NOTED. CALL LIGHT WITHIN REACH. BED IN THE LOWEST POSITION.
--- NOTE | 2018-10-01 19:00 | NUR ---
patient received awake, alert, lying quietly in bed. vss. no c/o pain noted. pm assessment complete. patient instructed to call for assistance when needed.
[2018-10-02 00:19] VITALS: BP 141/88
[2018-10-02] MEDS: ALBUTEROL/IPRATROPIUM 3 ML NEB NEB SCH ×3 (03:00→11:00)
[2018-10-02 04:00] VITALS: BP 135/74
[2018-10-02] MEDS: GUAIFENESIN 600 MG TAB PO SCH ×3 (05:20→11:56)
[2018-10-02] MEDS: LEVOTHYROXINE SODIUM 25 MCG TABLET PO SCH (05:20)
[2018-10-02 05:59] LABS: BASOPHILS # (AUTO) 0.1 (0.0-0.1); BASOPHILS % 0.6 % (0.0-1.0); EOSINOPHILS # (AUTO) 0.1 (0.0-0.4); EOSINOPHILS % 1.8 % (0.0-6.0); HEMATOCRIT 31.1 % (34.2-44.1); LYMPHOCYTES # (AUTO) 1.6 (1.0-3.2); LYMPHOCYTES % 20.4 % (18.0-39.1); MEAN CORPUSCULAR HEMOGLOBIN 23.6 pg (28-32); MEAN CORPUSCULAR HGB CONC 28.9 g/dL (31-35); MEAN CORPUSCULAR VOLUME 81.4 fL (81-99); MONOCYTES # (AUTO) 0.5 (0.2-0.8); MONOCYTES % 6.7 % (4.4-11.3); NEUTROPHILS # (AUTO) 5.4 (2.1-6.9); NEUTROPHILS % 70.1 % (38.7-80.0); PLATELET COUNT 341 x10e3/uL (140-360); RED BLOOD COUNT 3.82 x10e6/uL (3.6-5.1); RED CELL DISTRIBUTION WIDTH 17.5 % (11.7-14.4)
[2018-10-02 06:21] LABS: ANION GAP 16.5 mmol/L (8-16); BLOOD UREA NITROGEN 8 mg/dL (7-26); BUN/CREATININE RATIO 9 (6-25); CALCIUM 9.8 mg/dL (8.4-10.2); CARBON DIOXIDE 21 mmol/L (22-29); CHLORIDE 100 mmol/L (98-107); CREATININE, SERUM 0.89 mg/dL (0.57-1.11); EST GLOMERULAR FILTRATION RATE > 60 ML/MIN (60-); GLUCOSE 104 mg/dL (74-118); POTASSIUM 3.5 mmol/L (3.5-5.1); SODIUM 134 mmol/L (136-145)
[2018-10-02 07:30] VITALS: BP 123/71
--- NOTE | 2018-10-02 07:30 | NUR ---
PT UP IN BED ,DENIES PAIN ,NO DISTRESS NTOEDMARVA HERE
[2018-10-02 07:42] LABS: ANISOCYTOSIS SLIGHT; POLYCHROMASIA FEW
[2018-10-02 07:43] LABS: POIKILOCYTOSIS S; RBC MORPHOLOGY COMMENT ABNORMAL
[2018-10-02 08:02] VITALS: BP 123/77
[2018-10-02] MEDS: METOCLOPRAMIDE HCL 10 MG/2ML VIAL IV SCH ×2 (08:09→11:30)
[2018-10-02] MEDS: FOLIC ACID 1 MG TAB PO SCH (08:09)
[2018-10-02] MEDS: ASCORBIC ACID 500 MG TAB PO SCH (08:09)
[2018-10-02] MEDS: FERROUS SULFATE 325 MG TAB PO SCH (08:09)
[2018-10-02] MEDS ORDERED: LEVOTHYROXINE25 MCG PO (08:19)
[2018-10-02] MEDS ORDERED: MUCINEX600 MG PO (08:19)
[2018-10-02] MEDS ORDERED: ASCORBIC ACID500 MG PO (08:19)
[2018-10-02] MEDS ORDERED: LEVAQUIN500 MG PO (08:19)
[2018-10-02] MEDS ORDERED: FOLIC ACID1 MG PO (08:19)
[2018-10-02] MEDS ORDERED: FERROUS SULFAT325 MG PO (08:19)
[2018-10-02] MEDS ORDERED: LIPITOR20 MG PO (08:20)
[2018-10-02] MEDS ORDERED: LEVOFLOXACIN 500 MG TAB PO SCH (09:30)
[2018-10-02 11:48] VITALS: BP 148/66
--- NOTE | 2018-10-02 14:30 | NUR ---
pt discharged home,iv dcd without redness or swelling,prescriptions and instructions given copy on chart.transported to auto via w/c
--- NOTE | 2018-10-02 21:57 | Discharge Summary ---
ADMISSION DIAGNOSES: Community-acquired pneumonia, present on admission; hypothyroidism; morbid obesity; anemia; and folic acid deficiency. DISCHARGE DIAGNOSES: Community-acquired pneumonia, present on admission; hypothyroidism; morbid obesity; anemia; and folic acid deficiency; severe mitral regurgitation; hyperlipidemia. MEDICAL HISTORY: Asthma, hypothyroidism, pseudotumor cerebri. SURGICAL HISTORY: Bilateral tubal ligation. FAMILY HISTORY: The patient's father had diabetes. The patient's grandmother and both grandfathers had cancer. The patient's grandmother and grandfather also had stroke. SOCIAL HISTORY: The patient admits to occasional alcohol use. HOSPITAL COURSE: A 37-year-old female, complains of productive cough, shortness of breath, dyspnea on exertion, and wheezing since Tuesday night. She denies nausea, vomiting, diarrhea, and fever. Symptoms are worse with ambulation and improved with IV antibiotics and nebulizer treatments. The patient denies dysuria and melena. On admission, the patient had a chest x-ray that showed mild patchy bibasilar opacities. Blood cultures were negative. Triglycerides were high at 181, cholesterol 233, LDL 147. TSH was 109. Echo showed an EF of over 55% with severe mitral regurg and dilated left ventricle. Cardiology was then consulted, who said the patient can follow up outpatient for the mitral regurg. She was started on Levaquin, nebs, and Mucinex and felt much better. She is aware of her hypothyroidism, but has not been taking medicines because she has not followed up with any physicians. She does say she has an Endocrinology appointment on October 12. She will discharge home with new prescriptions for vitamin C, Lipitor, iron, folic acid, Mucinex, Levaquin, and levothyroxine. Vital signs stable, the patient afebrile. The patient will follow up with primary care and endocrinology in 1 to 2 weeks. She understands discharge instructions and agrees to plan. Dictated by Marline Odonnell NP MD CORBIN Mims/MODL /[id number]
--- NOTE | 2018-10-03 00:43 | Consultation ---
DATE OF CONSULTATION: 10/02/2018 REQUESTING PHYSICIAN: Addison Fallon MD. REASON FOR CONSULTATION: Severe mitral regurgitation. HISTORY OF PRESENT ILLNESS: This is a 37-year-old woman with history of hyperlipidemia and asthma, who presented with complaints of sore throat, dyspnea, and wheezing. She was started on IV antibiotics and nebulizers with improvement in her symptoms. Echocardiogram was performed which revealed severe mitral regurgitation with [id number] mitral stenosis, left ventricular systolic function was preserved with pseudonormal LV filling pattern. Pulmonary hypertension was noted with estimated RVSP of 69 mmHg. Cardiology is therefore consulted for further evaluation. The patient denies any chest pain, palpitations, edema, orthopnea, PND, or lightheadedness. She states that she does has dyspnea on exertion at climbing one flight of stairs, but she attributed this to her weight. This has not progressed, she attributed to her weight. She has not noted any changes in her exercise tolerance recently either. REVIEW OF SYSTEMS: A 12-point review of systems was performed and is negative except as per HPI. PAST MEDICAL HISTORY: 1. Hyperlipidemia. 2. Asthma. PAST SURGICAL HISTORY: Tubal ligation. ALLERGIES: PLEASE SEE EMR. MEDICATIONS: Please see medication list. SOCIAL HISTORY: Denies tobacco or illicit drugs. She does drink alcohol occasionally. FAMILY HISTORY: Denies history of cardiac disease. PHYSICAL EXAMINATION: VITAL SIGNS: Temperature 98.1 degrees, pulse 75, respiratory rate 18, blood pressure 148/66, and oxygen saturation 98% on room air. GENERAL: Obese woman, in no acute distress. Well developed and well nourished. HEENT: Normocephalic and atraumatic. Pupils are equal. No scleral icterus. NECK: Supple. No thyromegaly or cervical lymphadenopathy. No carotid bruits. LUNGS: Clear to auscultation bilaterally. No wheezes or crackles. CARDIOVASCULAR: Normal rate, regular rhythm, systolic murmur. ABDOMEN: Soft and nontender. EXTREMITIES: No edema. NEUROLOGIC: Nonfocal exam. SKIN: No rash appreciated. LABORATORY DATA: Sodium 134, potassium 3.5, chloride 100, CO2 of 21, BUN 8, and creatinine 0.89. BNP 149.4. Troponin is less than 0.001. WBC 7.74, hemoglobin 9, hematocrit 31.1, and platelets 341. EKG, normal sinus rhythm, possible left atrial enlargement, right axis deviation. IMPRESSION: 1. Severe mitral regurgitation. 2. Pdkb-jz-zukrsasi mitral stenosis. 3. Pulmonary hypertension by noninvasive evaluation. 4. Asthma. 5. Hypothyroidism. 6. Hyperlipidemia. 7. Obesity. 8. Anemia. RECOMMENDATIONS: The patient needs [facility] for further evaluation of the etiology and severity of her mitral regurgitation. If this is confirmed to be severe mitral regurgitation, given her low normal LVEF and mildly dilated LV chamber size as she would need referral to CV Surgery for mitral valve replacement. She would likewise need coronary angiography prior to surgery for surgical planning. The patient is clinically stable at this time. She may be discharged home to complete outpatient workup. Thank you for this consult. We will continue to follow. Brittanie Henley MD [facility]/MODL /[id number]
== END 2018-10-02 14:32 | disposition home or self-care (01) ==
LOC: FSED 08:04 → ERHOLD 09:43 → MED/SURG3 12:15
PROVIDERS: ADMIT Internal Medicine; ATTEND Internal Medicine
DX: J18.9 Pneumonia, unspecified organism (principal); D50.0 Iron deficiency anemia secondary to blood loss (chronic); Z88.1 Allergy status to other antibiotic agents; E03.9 Hypothyroidism, unspecified; G93.2 Benign intracranial hypertension; J45.909 Unspecified asthma, uncomplicated; Z83.3 Family history of diabetes mellitus; Z80.9 Family history of malignant neoplasm, unspecified; Z82.3 Family history of stroke; E66.01 Morbid (severe) obesity due to excess calories; Z68.43 Body mass index [BMI] 50.0-59.9, adult; J45.901 Unspecified asthma with (acute) exacerbation; I34.0 Nonrheumatic mitral (valve) insufficiency; I27.20 Pulmonary hypertension, unspecified; E53.8 Deficiency of other specified B group vitamins; E78.5 Hyperlipidemia, unspecified
CPT/HCPCS: 36415 ×2; 71046; 80048 ×2; 80053; 80061; 80076; 81003; 81025; 82550 ×2; 82553 ×2; 82728; 82746; 83036; 83518 ×2; 83540; 83735; 83880 ×2; 84436; 84443; 84466; 84479; 84484 ×2; 85025 ×3; 85379; 86850; 86900; 87040; 87400; 93005; 93306; 94640 ×5; 99284; C9113; G0378 ×3; J2765 ×2; J7050

== ENCOUNTER 2018-11-09 15:06 | Emergency (ER) | payer OTHER ==
[~2018-11-09] VITALS: Ht 149.9 cm; Wt 121.8 kg
[~2018-11-09 15:06] MED LIST: ASCORBIC ACID500 MG PO; FERROUS SULFAT325 MG PO; FOLIC ACID1 MG PO; LEVAQUIN500 MG PO; LEVOTHYROXINE25 MCG PO; LIPITOR20 MG PO; MUCINEX600 MG PO
--- OUTSIDE RECORDS SUMMARY | 2018-11-09 15:10 | XMS REPORT | Continuity of Care Document ---
Author Author [facility] Organization [facility] Address Unknown Phone Unavailable Care Team Providers Care Buttonholer Name Role Phone [facility] Unavailable Unavailable Problems Problem Status Onset Date Classification Date Reported Comments Source KNEE AND ELBOW PAIN Active 04/09/2012 [facility] Graves eye disease Resolved Problem 04/11/2012 [facility] Hypothyroidism Resolved Problem 04/11/2012 [facility] OLIMPIA Active Problem 07/08/2017 2.16.840.1.804567.4.391.11.46981 BMI 50.0-59.9, adult Active Problem 07/08/2017 2.16.840.1.430112.4.391.11.75876 Iron deficiency anemia due to chronic blood loss Active Problem 07/08/2017 2.16.840.1.678069.4.391.11.55995 Hypothyroidism, unspecified type Active Diagnosis 07/08/2017 2.16.840.1.533769.4.391.11.06910 Hx of thyroid irradiation Active Problem 07/08/2017 2.16.840.1.617648.4.391.11.49670 Morbid obesity, unspecified obesity type Active Problem 07/08/2017 2.16.840.1.657587.4.391.11.93626 History of thyrotoxicosis Active Problem 07/08/2017 2.16.840.1.779595.4.391.11.15926 Encounter for general adult medical examination with abnormal findings Active Diagnosis 06/22/2017 2.16.840.1.521453.4.391.11.24119 Folic acid deficiency Active Problem 07/08/2017 2.16.840.1.225559.4.391.11.18396 Vitamin D deficiency Active Problem 07/08/2017 2.16.840.1.787178.4.391.11.49765 Encounter for immunization Active Diagnosis 04/06/2016 2.16.840.1.835924.4.391.11.47491 Abnormal thyroid blood test Active Diagnosis 04/08/2016 2.16.840.1.031735.4.391.11.28790 Medications Medication Details Route Status Patient Instructions Ordering Provider Order Date Source Ferrous Gluconate as directed Orally Active 325 MG Orally daily Nickolas 06/07/2017 2.16.840.1.327714.4.391.11.30615 Caltrate 600+D 1 tablet with a meal Orally Active 600-800 MG- UNIT Orally Once a day Nickolas 06/07/2017 2.16.840.1.674252.4.391.11.06005 Ergocalciferol 1 capsule Orally Active 29483 UNIT Orally once a week Nickolas 06/07/2017 2.16.840.1.903809.4.391.11.52702 Folic Acid 1 tablet Orally Active 1 MG Orally Once a day Nickolas 06/07/2017 2.16.840.1.529679.4.391.11.40693 Hemocyte Plus as directed Orally Active 106-1 MG Orally Once a day Nickolas 05/26/2016 2.16.840.1.689302.4.391.11.50691 Levothyroxine Sodium 1 tablet Orally Active 150 MCG Orally Once a day Nickolas 05/26/2016 2.16.840.1.421720.4.391.11.88434 Adipex-P 1 tablet Orally Active 37.5 MG Orally Once a day Nickolas 05/26/2016 2.16.840.1.758999.4.391.11.80169 Hemocyte Plus as directed Orally Active 106-1 MG Orally Once a day Nickolas 05/26/2016 2.16.840.1.213547.4.391.11.24751 Levothyroxine Sodium 1 tablet Orally Active 150 MCG Orally Once a day Nickolas 04/07/2016 2.16.840.1.048092.4.391.11.17721 Levothyroxine Sodium 1 tablet Orally Active 100 MCG Orally Once a day Nickolas 04/07/2016 2.16.840.1.640362.4.391.11.38424 [place] 5/325 oral tablet 1-2 tab, PO, Q4-6H, PRN, 15 tab, Pain, Substitution Allowed, Maintenance PO Active [facility] 04/10/2012 [facility] [place] 5/325 oral tablet 2 tab, Route: PO, Drug Form: TAB, Dosing Weight 95.455, kg, ONCE, Start date: 04/09/12 19:37:00, Stop date: 04/09/12 19:37:00 PO No Longer Active [facility] 04/10/2012 [facility] Levothyroxine Sodium TAKE 1 TABLET BY MOUTH EVERY DAY NA Active 150 MCG Nickolas 2.16.840.1.526742.4.391.11.22189 Allergies, Adverse Reactions, Alerts Substance Category Reaction Severity Reaction type Status Date Reported Comments Source Amoxicillin Adverse Reaction hives Adverse Reaction Active 07/04/2017 2.16.840.1.149701.4.391.11.12791 amoxicillin drug allergy Allergy Active [facility] Immunizations Immunization Date Given Site Status Last Updated Comments Source FLU VACCINE NO PRESERV 3 & > 03/26/2016 completed 2.16.840.1.162242.4.391.11.89768 Results No Data Provided for This Section Pathology Reports No Data Provided for This Section Diagnostic Reports No Data Provided for This Section Consultation Notes No Data Provided for This Section Discharge Summaries No Data Provided for This Section History and Physicals No Data Provided for This Section Vital Signs Vital Sign Value Date Comments Source Weight 281.4 07/04/2017 2.16.840.1.046358.4.391.11.18712 Height 60.6 07/04/2017 2.16.840.1.079953.4.391.11.25624 Temperature Oral (F) 98.5 F 07/04/2017 2.16.840.1.216893.4.391.11.95941 Heart Rate 82 07/04/2017 2.16.840.1.813251.4.391.11.18804 Diastolic (mm Hg) 88 07/04/2017 2.16.840.1.379533.4.391.11.01207 Systolic (mm Hg) 133 07/04/2017 2.16.840.1.346985.4.391.11.90757 Weight 293.6 06/06/2017 2.16.840.1.020406.4.391.11.87351 Height 60.6 06/06/2017 2.16.840.1.614464.4.391.11.43407 Temperature Oral (F) 9892 F 06/06/2017 2.16.840.1.350766.4.391.11.00469 Heart Rate 88 06/06/2017 2.16.840.1.411698.4.391.11.40033 Diastolic (mm Hg) 94 06/06/2017 2.16.840.1.546292.4.391.11.89554 Systolic (mm Hg) 133 06/06/2017 2.16.840.1.110986.4.391.11.97422 Weight 291.1 05/26/2016 2.16.840.1.834116.4.391.11.71480 Height 60.6 05/26/2016 2.16.840.1.171372.4.391.11.66406 Temperature Oral (F) 98.0 F 05/26/2016 2.16.840.1.083651.4.391.11.90557 Heart Rate 83 05/26/2016 2.16.840.1.253377.4.391.11.37722 Diastolic (mm Hg) 95 05/26/2016 2.16.840.1.866673.4.391.11.00169 Systolic (mm Hg) 130 05/26/2016 2.16.840.1.715832.4.391.11.06787 Weight 291.7 03/26/2016 2.16.840.1.724598.4.391.11.08625 Height 60.6 03/26/2016 2.16.840.1.258075.4.391.11.92245 Temperature Oral (F) 98.1 F 03/26/2016 2.16.840.1.888163.4.391.11.32358 Heart Rate 85 03/26/2016 2.16.840.1.263912.4.391.11.05250 Diastolic (mm Hg) 96 03/26/2016 2.16.840.1.935254.4.391.11.47046 Systolic (mm Hg) 137 03/26/2016 2.16.840.1.300628.4.391.11.26135 Weight 95.455 04/10/2012 [facility] Height 149.86 cm 04/10/2012 [facility] Encounters Location Location Details Encounter Type Encounter Number Reason For Visit Attending Provider ADM Date DC Date Status Source [facility] Emergency [id number] NOE STONE 04/09/2012 04/09/2012 Discharged [facility] Unknown [id number] 03/26/2016 03/26/2016 2.16.840.1.163967.4.391.11.11044 [facility] Unknown [id number] 03/26/2016 03/26/2016 2.16.840.1.299612.4.391.11.17155 [facility] Unknown [id number] 03/26/2016 03/26/2016 2.16.840.1.768534.4.391.11.56209 [facility] Unknown [id number] 04/06/2016 04/06/2016 2.16.840.1.049924.4.391.11.17193 [facility] Unknown [id number] 04/06/2016 04/06/2016 2.16.840.1.917484.4.391.11.87213 [facility] Unknown [id number] 04/07/2016 04/07/2016 2.16.840.1.286114.4.391.11.67233 Procedures Procedure Code Date Perfomer Comments Source Tubal ligation [id number] [facility] Assessment and Plan No Data Provided [...] 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
--- OUTSIDE RECORDS SUMMARY | 2018-11-09 15:10 | XMS REPORT | Clinical Summary ---
Author Author [facility] Organization [facility] Address Unknown Phone Unavailable Care Team Providers Care Chancery Clerk Name Role Phone Rowdy Olmos MD PCP Allergies Comments Active Allergy Reactions Severity Noted Date Amoxicillin Anaphylaxis High 02/22/2017 Medications End Date Status Medication Sig Dispensed Refills Start Date Active levothyroxine (SYNTHROID, Take 150 mcg 0 LEVOXYL) 150 mcg tablet by mouth every morning. Active multivitamin,mk-wqgj-Eh-F Take 1 tablet 0 A-min (UNI-THERA M) [...] Dx); Bronchospasm 05/30/2018 Emergency Emergency Medicine after 11/08/2017 Social History Date Tobacco Use Types Packs/Day Years Used Never Smoker Smokeless Tobacco: Never Used Drinks/Week oz/Week Comments Alcohol Use social Yes Sex Assigned at Date Recorded Not on file Industry Job Start Date Occupation Not on file Not on file Not on file Travel End Travel History Travel Start No recent travel history available. Last Filed Vital Signs Reading Time Taken Comments Vital Sign 114/72 05/30/2018 5:10 PM CDT Blood Pressure 86 05/30/2018 5:10 PM CDT Pulse 36.9 C (98.4 F) 05/30/2018 5:10 PM CDT Temperature 20 05/30/2018 5:10 PM CDT Respiratory Rate 99% 05/30/2018 5:10 PM CDT Oxygen Saturation - - Inhaled Oxygen Concentration 124 kg (274 lb) 05/30/2018 5:19 PM CDT Weight 149.9 cm (4' 11") 05/30/2018 5:19 PM CDT Height 55.34 05/30/2018 5:19 PM CDT Body Mass Index Plan of Treatment Health Maintenance Due Date Last Done Comments CERVICAL CANCER SCREENING 2001 INFLUENZA VACCINE 10/05/2018 Procedures Comments Procedure Name Priority Date/Time Associated Diagnosis INFLUENZA ANTIGEN Routine 05/30/2018 5:44 PM CDT STREP SCREEN CULTURE Routine 05/30/2018 5:39 PM CDT GROUP A STREP, RAPID Routine 05/30/2018 ANTIGEN 5:39 PM CDT after 11/08/2017 Results * Influenza antigen (05/30/2018 5:44 PM CDT) Pathologist [facility] Influenza Negative for Influenza A/B DOHERTY antigen antigen. SABIANISM Comment: THOR Specimen [facility] EMERGENCY CARE Specimen Source: Nares CENTER Specimen Site: Left Specimen Nares - Left Performing Organization Address [facility] [place] [address] PATHOLOGY AND GENOMIC MEDICINE, [facility] SABIANISM [address] [place] [address] * Group A strep, rapid antigen (05/30/2018 5:39 PM CDT) Group A strep, Negative for Group A [facility] rapid antigen Streptococcus antigen. SABIANISM result Comment: THOR Specimen Information EMERGENCY CARE Specimen Source: Throat CENTER Specimen Site: Not otherwise specified Specimen Throat - Not otherwise specified Performing Organization Address [facility] [place] [address] PATHOLOGY AND GENOMIC MEDICINE, [facility] HERNANDEZ[facility] [address] [place] [address] [facility] * Strep screen culture (05/30/2018 5:39 PM CDT) Strep screen No beta hemolytic Streptococci [facility] culture isolate isolated SABIANISM Comment: HOSPITAL Specimen Information Specimen Source: Throat Specimen Site: Not otherwise specified Specimen Throat - Not otherwise specified Performing Organization Address City/State/Zipcode Phone Number [facility] [address] [place] [id number] PATHOLOGY AND GENOMIC MEDICINE [facility] SABIANISM [address] [place] [address] HOSPITAL after 11/08/2017 Insurance Type Payer Benefit Subscriber ID Effective Phone Address Plan / Dates Group Exchange MCCRARY EXCHANGE MCCRARY xxxxxxxxxx 2016-P [employer] resent E EXCHANGE TPL TPL TPL-MED-DA xxxxxxxxxx 2017 TA -Present Liability Advance Directives For more information, please contact: [phone] Patient Branding Machine Tender Explanation Type Date Recorded Advance Directives, Living Will and Medical Power of Spray Painter Helper
[2018-11-09] MEDS ORDERED: ALBUTEROL/IPRATROPIUM 3 ML NEB NEB ONE (15:45)
[2018-11-09] MEDS ORDERED: ALBUTEROL/IPRATROPIUM 3 ML NEB ONE (15:54)
--- NOTE | 2018-11-09 16:45 | Diagnostic Imaging Report ---
Examination: Single AP view of the chest. COMPARISON: September 30, 2018 INDICATION: Asthma DISCUSSION: Lines/tubes: None. Lungs: Enlargement of the central pulmonary vasculature. No edema. Pleura: No pleural effusion or pneumothorax. Heart and mediastinum: Cardiomegaly Bones and soft tissues: No acute bony abnormalities. IMPRESSION: 1. Cardiomegaly with enlargement of the central pulmonary vasculature Signed by: Dr. Adalid Escobedo M.D. on 11/09/2018 4:41 PM
[2018-11-09 17:08] VITALS: BP 139/94
== END 2018-11-09 17:20 | disposition home or self-care (01) ==
LOC: FSED 15:06
DX: R05 Cough (principal); J02.9 Acute pharyngitis, unspecified; J45.31 Mild persistent asthma with (acute) exacerbation
CPT/HCPCS: 71045; 83518; 99283

== ENCOUNTER 2019-04-09 16:41 | Emergency (ER) | payer OTHER ==
[~2019-04-09] VITALS: Ht 149.9 cm; Wt 121.6 kg
--- NOTE | 2019-04-09 17:50 | Diagnostic Imaging Report ---
EXAMINATION: KNEE 3VW LT - HOPD INDICATION: Knee instability COMPARISON: None FINDINGS: No acute fracture or dislocation. Alignment appears anatomic. No joint effusion. No substantial degenerative change. IMPRESSION: No acute osseous injury. Signed by: Domingo Espino MD on 04/09/2019 5:48 PM
== END 2019-04-09 18:28 | disposition home or self-care (01) ==
LOC: FSED 16:41
DX: S83.512A Sprain of anterior cruciate ligament of left knee, initial encounter (principal); W01.0XXA Fall on same level from slipping, tripping and stumbling without subsequent striking against object, initial encounter; Y92.008 Other place in unspecified non-institutional (private) residence as the place of occurrence of the external cause; Z87.19 Personal history of other diseases of the digestive system
CPT/HCPCS: 99284